=== PATIENT | male | born 1960 | race Caucasian/White ===

== ENCOUNTER 2024-08-20 19:24 | Emergency (ER) | payer OTHER ==
[~2024-08-20] VITALS: Ht 182.9 cm; Wt 87.5 kg
[2024-08-20 19:55] LABS: BASOPHILS 0.6 % (0-2); EOSINOPHILS 6.6 % (0-6); HEMATOCRIT 34.2 % (35.0-50.0); HEMOGLOBIN 10.3 g/dL (12.0-18.0); LYMPHOCYTES 25.7 % (24-44); MCH 20.2 (27-36); MCHC 30.1 g/dl (30-36); MCV 66.9 fl (81-99); MONOCYTES 6.3 % (0-12); NEUTROPHILS 60.8 % (39-80); PLATELET COUNT 230 K/uL (140-440); RBC 5.12 M/ul (4.3-5.7); RDW 20.1 (10.5-15.0)
[2024-08-20 20:11] LABS: ALBUMIN 3.4 g/dL (3.4-5.0); ALBUMIN/GLOBULIN RATIO 0.85 (1.1-2.4); ANION GAP 12.7 (7-21); BILIRUBIN, TOTAL 0.3 mg/dL (0.2-1.0); BUN/CREATININE RATIO 9.56 (6.0-28.6); CALCIUM 8.7 mg/dL (8.5-10.1); CREATININE, SERUM 1.15 mg/dL (0.70-1.30); MAGNESIUM 2.2 mg/dL (1.8-2.4); POTASSIUM 3.7 mmol/L (3.5-5.1); PROTEIN, TOTAL 7.4 g/dL (6.4-8.2)
[2024-08-20] MEDS ORDERED: ALBUTEROL/IPRATROPIUM 3 ML NEB INH ONE (20:15)
[2024-08-20 20:29] LABS: ABO A; RH POSITIVE
[2024-08-20 20:31] LABS: ANTIBODY SCREEN NEGATIVE
[2024-08-20] MEDS ORDERED: VITAMIN C500 M1 PO (21:07)
[2024-08-20] MEDS ORDERED: FERROUS SULFAT325 M2 PO (21:07)
[2024-08-20] MEDS ORDERED: COLACE100 MG PO (21:07)
[2024-08-20 21:24] VITALS: BP 132/73
--- OUTSIDE RECORDS SUMMARY | 2024-08-20 21:49 | XMS ---
PreManage Notification: [employer] Aide Events No recent Security Events currently on file CRITERIA MET - [facility] - 2 Visits in 30 Days CARE PROVIDERS Sole Escalante Nurse Practitioner: Family Wesley SIERRA PHONE: Unknown Mar[facility] has no Care Guidelines for this patient. EJennifer VISIT COUNT (12 MO.) [address] TOTAL 3 NOTE: Visits indicate total known visits. ED/UCC VISIT TRACKING (12 MO.) 08/20/2024 19:25 [facility] [place] TYPE: Emergency COMPLAINT: - ABNORMAL LAB RESULTS [facility] DIAGNOSES: - Abnormal levels of other serum enzymes - Left upper quadrant pain - nausea; abdominal pain 07/18/2024 17:44 [facility] [place] TYPE: Emergency DIAGNOSES: - Poisoning by unspecified narcotics, undetermined, initial encounter - Overdose INPATIENT VISIT TRACKING (12 MO.) No inpatient visits to display in this time frame [email or web address]
== END 2024-08-20 21:26 | disposition home or self-care (01) ==
LOC: ED 19:24
PROVIDERS: Family Medicine
DX: D50.9 Iron deficiency anemia, unspecified (principal); I10 Essential (primary) hypertension; J45.909 Unspecified asthma, uncomplicated
CPT/HCPCS: 36415; 80053; 83735; 85025; 85060; 86850; 86900; 86901; 94640; 99284